=== PATIENT | male | born 1965 | race Caucasian/White ===

== ENCOUNTER 2021-01-02 10:09 | Emergency (ER) | payer MEDICAID, MEDICARE ==
[~2021-01-02] VITALS: Ht 180.3 cm; Wt 102.6 kg
[~2021-01-02 10:09] MED LIST: AUGM875T28 PO; BACT800T5 PO; CELE1CAP4 PO; DOCU10CA PO; MYLI40DR PO; NEUR600T PO; No Medications; ROXI1TAB2 PO; TYLE325T5 PO
[2021-01-02 11:51] LABS: BASO # 0.1 10^3/uL (0.0-0.2); BASO % 0.8 % (0.0-1.0); EOS # 0.2 10^3/uL (0.0-0.5); EOS % 1.4 % (0.0-3.0); HEMOGLOBIN 16.8 g/dl (13.5-17.5); LYMPH # 3.7 10^3/uL (1.5-5.0); LYMPH % 29.8 % (24.0-44.0); MEAN CORPUSCULAR HEMOGLOBIN 31.5 pg (27.0-33.0); MEAN CORPUSCULAR HGB CONC 33.6 g/dl (32.0-36.5); MEAN CORPUSCULAR VOLUME 93.8 fl (80.0-96.0); MONO # 0.9 10^3/uL (0.0-0.8); MONO % 7.2 % (2.0-8.0); NEUTROPHILS # 7.4 10^3/uL (1.5-8.5); NEUTROPHILS % 60.1 % (36.0-66.0); PLATELET COUNT, AUTOMATED 332 10^3/uL (150-450); RED BLOOD COUNT 5.33 10^6/uL (4.30-6.10); WHITE BLOOD COUNT 12.3 10^3/uL (4.0-10.0)
--- NOTE | 2021-01-02 12:06 | REP ---
INDICATION: large bulge Left abdomen, concern hernia. COMPARISON: None. TECHNIQUE: Real-time sonographic evaluation of anterior abdominal wall performed at the site of bulging on the left. FINDINGS: To the left of the umbilicus there is a hernia defect approximately 3 cm in diameter in the anterior abdominal wall. Peritoneal fat extends through the hernia defect into the anterior abdominal wall. The hernia sac measures approximately 10.5 x 3.9 x 9.3 cm. No bowel is seen in the hernia. The hernia is reducible with transducer pressure. No fluid collection is seen. IMPRESSION: Reducible left paraumbilical anterior abdominal wall hernia containing peritoneal fat but no bowel. <Electronically signed by Jamarcus De La Torre > 01/02/21 1201
[2021-01-02 12:18] LABS: ALBUMIN 4.1 GM/DL (3.2-5.2); ALT/SGPT 35 U/L (12-78); BILIRUBIN,DIRECT 0.2 MG/DL (0.0-0.2); BILIRUBIN,TOTAL 0.5 MG/DL (0.2-1.0); BLOOD UREA NITROGEN 12 MG/DL (7-18); CALCIUM LEVEL 9.1 MG/DL (8.5-10.1); CARBON DIOXIDE LEVEL 32 MEQ/L (21-32); CHLORIDE LEVEL 102 MEQ/L (98-107); CREATININE FOR GFR 0.89 MG/DL (0.70-1.30); GLOMERULAR FILTRATION RATE > 60.0 (>56); GLUCOSE, FASTING 95 MG/DL (70-100); LIPASE 141 U/L (73-393); POTASSIUM SERUM 3.7 MEQ/L (3.5-5.1); SODIUM LEVEL 137 MEQ/L (136-145); TOTAL PROTEIN 7.8 GM/DL (6.4-8.2)
[2021-01-02] MEDS ORDERED: ISOVUE-370 76% 100ML VIAL As Ordered ONE (12:20)
[2021-01-02 12:55] VITALS: BP 136/75
--- NOTE | 2021-01-02 13:00 | REP ---
INDICATION: large bulge left abd, ro incarceration hernia COMPARISON: 11/08/2014. TECHNIQUE: CT Scan of the abdomen and pelvis was performed with intravenous administration of 100 cc of Isovue 370, without oral contrast. Sagittal and coronal reconstruction images are performed. FINDINGS: Lung bases: Unremarkable. Liver: There is diffuse fatty infiltration of the liver Gallbladder: Unremarkable. Spleen: Normal. Adrenals: Normal. Pancreas: Normal. Kidneys: Normal. Small and large bowel: There is no bowel obstruction. There is no free air. There is a left paraumbilical hernia of the anterior bowel wall. The diameter of the defect in the abdominal wall is approximately 4.6 cm. The hernia sac contains noninflamed fat. No bowel protrudes into the hernia. Free fluid: None. Abdominal aorta: No aneurysm or dissection. Adenopathy: None. Appendix: Not inflamed. Osseous structures: There are degenerative changes of the spine without compression deformity. Pelvis: No mass. IMPRESSION: There is a left paraumbilical hernia it of the anterior bowel wall. The diameter of the defect in the abdominal wall is approximately 4.6 cm. The hernia sac contains noninflamed fat. No bowel protrudes into the hernia. No free air or obstruction. <Electronically signed by Jamarcus De La Torre > 01/02/21 [id number]
--- NOTE | 2021-01-05 11:29 | ED PDOC ---
Post-Departure Follow-Up ct abd/p faxed to dr madden for fu Rodríguez De Paz MD January 05, 2021 11:29
== END 2021-01-02 13:31 | disposition home or self-care (01) ==
LOC: M ED 10:09
DX: K46.9 Unspecified abdominal hernia without obstruction or gangrene (principal); F17.200 Nicotine dependence, unspecified, uncomplicated; Z88.1 Allergy status to other antibiotic agents; Z88.8 Allergy status to other drugs, medicaments and biological substances; Z90.49 Acquired absence of other specified parts of digestive tract
CPT/HCPCS: 36415; 74177; 76705; 80048; 80076; 83690; 85025; 99284; Q9967

== ENCOUNTER → 2021-04-30 | Outpatient (CLI) | payer MEDICARE ==
--- NOTE | 2021-04-30 13:28 | REP ---
INDICATION: UMBILICAL HERNIA WITHOUT OBSTRUCTION OR GANGRENE COMPARISON: 11/05/2015 TECHNIQUE: PA and lateral. FINDINGS: The mediastinum and cardiac silhouette are normal. The lung thompson demonstrate chronic interstitial changes suggesting emphysematous disease without acute consolidation, effusion, or pneumothorax. The skeletal structures are intact and normal. IMPRESSION: No acute cardiopulmonary process. <Electronically signed by Nitish Guillory > 04/30/21 [id number]
== END ==
LOC: M RAD 11:53
PROVIDERS: ATTEND Physician Assistant
DX: Z01.810 Encounter for preprocedural cardiovascular examination (principal); K42.9 Umbilical hernia without obstruction or gangrene

== ENCOUNTER → 2021-05-13 | Outpatient (CLI) | payer MEDICARE ==
[~2021-05-13] MED LIST changes: +ACET-907 PO
== END ==
LOC: M LABSMTC 10:01
PROVIDERS: ATTEND Anesthesiology
DX: Z01.812 Encounter for preprocedural laboratory examination (principal); Z20.822 Contact with and (suspected) exposure to COVID-19

== ENCOUNTER 2021-05-18 05:58 | Inpatient (IN) | payer MEDICARE ==
[2021-05-18] VITALS (7 sets, daily range): BP systolic 130–159; BP diastolic 88–98; O2SAT 65
[~2021-05-18] VITALS: Ht 180.3 cm; Wt 98.4 kg
[2021-05-18] MEDS ORDERED: HEPARIN SOD (PORCINE) 5000UNITS/ML 1ML VIAL/SYRINGE SQ ONE (06:00)
[2021-05-18] MEDS ORDERED: CelecoXIB 400 MG CAP PO ONE (06:00)
[2021-05-18] MEDS ORDERED: ceFAZolin SOD 2 GM in IV 1 EA IV ONE (06:00)
[2021-05-18] MEDS ORDERED: LR 1,000 ML IV ONE (06:00)
[2021-05-18] MEDS ORDERED: LIDOCAINE 1% SDV 30ML VIAL As Ordered ONE (07:08)
[2021-05-18] MEDS ORDERED: BUPIVACAINE HCL 0.25% 30ML VIAL As Ordered ONE (07:08)
[2021-05-18] MEDS ORDERED: BUPIVACAINE HCL 0.25% 10ML VIAL As Ordered ONE (07:09)
[2021-05-18] MEDS ORDERED: HYDROmorphone HCL 2 MG/ML 1ML VIAL As Ordered ONE (07:09)
[2021-05-18] MEDS ORDERED: fentaNYL 100 MCG/2 ML INJECTION (J3010) As Ordered ONE (07:09)
[2021-05-18] MEDS ORDERED: MIDAZOLAM INJ 2MG/2ML VIAL (J2250 PER 1MG) As Ordered ONE (07:09)
[2021-05-18] MEDS ORDERED: BUPIVACAINE LIPOSOME/PF 1.3% 20ML VIAL (13.3MG/ML)(EXPAREL)(C9290 PER1MG) As Ordered ONE (07:09)
[2021-05-18] MEDS ORDERED: ACETAMINOPHEN 1000MG 100ML IV BTL (OFIRMEV) (J0131 PER 10MG) As Ordered ONE (07:11)
[2021-05-18] MEDS ORDERED: LIDOCAINE 2% 100MG/5ML SDV (FOR ANES.) As Ordered ONE (07:11)
[2021-05-18] MEDS ORDERED: KETOROLAC 60MG 2ML VIAL As Ordered ONE (07:11)
[2021-05-18] MEDS ORDERED: ONDANSETRON 4MG/2ML VIAL As Ordered ONE (07:11)
[2021-05-18] MEDS ORDERED: propofoL 200 MG/20 ML VIAL As Ordered ONE (07:11)
[2021-05-18] MEDS ORDERED: ROCURONIUM BROMIDE 50 MG/5 ML VIAL As Ordered ONE ×3 (07:11→11:46)
[2021-05-18] MEDS ORDERED: dexameTHASONE 4 MG/ML 1ML VIAL (J1100 PER 1MG) As Ordered ONE (07:11)
[2021-05-18] MEDS ORDERED: PHENYLephrine 500MCG 5ML (100MCG/ML) SYRINGE As Ordered ONE (07:51)
[2021-05-18] MEDS ORDERED: ePHEDrine SULFATE 25 MG/5 ML(5MG/ML) SYRINGE As Ordered ONE (07:51)
[2021-05-18] MEDS ORDERED: SUGAMMADEX SODIUM 500 MG/5 ML VIAL (BRIDION) As Ordered ONE (08:13)
[2021-05-18] MEDS ORDERED: LABETALOL 100MG/20ML VIAL As Ordered ONE (08:48)
[2021-05-18] MEDS: SENOKOT S TAB PO SCH ×2 (09:00→21:08)
[2021-05-18] MEDS ORDERED: ceFAZolin 1GM VIAL (J0690 PER 500MG) As Ordered ONE (12:18)
[2021-05-18] MEDS ORDERED: MORPHINE 4 MG/ML 1ML VIAL/SYRINGE (J2270) IV PRN (13:05)
[2021-05-18] MEDS ORDERED: ONDANSETRON 4MG/2ML VIAL IV PRN ×2 (13:05→13:20)
[2021-05-18] MEDS ORDERED: NORCO, ANEXSIA 5/325MG TABLET (HYDROcodone/ACETAMINOPHEN) PO PRN (13:05)
[2021-05-18] MEDS ORDERED: ACETAMINOPHEN TAB 650MG DOSE (2X325MG) PO PRN (13:05)
[2021-05-18] MEDS ORDERED: ALBUTEROL SULFATE 2.5 MG/0.5 ML INH NEB SOLN INH ONE (13:15)
[2021-05-18] MEDS ORDERED: oxyCODONE 5MG TAB PO PRN (13:20)
[2021-05-18] MEDS ORDERED: fentaNYL 100 MCG/2 ML INJECTION (J3010) IV PRN (13:20)
[2021-05-18] MEDS ORDERED: LR 1,000 ML IV SCH (13:20)
[2021-05-18] MEDS ORDERED: HYDROMORPHONE HCL 0.5 MG/ 0.5 ML SYRINGE (J1170 PER 1) IV PRN (13:20)
--- NOTE | 2021-05-18 13:41 | ROOPDOC ---
[facility] Report Of Operation Report of Operation DATE OF PROCEDURE: 05/18/21 PREPROCEDURE DIAGNOSES: Large incisional hernia left lower abdomen. POSTPROCEDURE DIAGNOSES: [place] cheese multiple incisional hernia, wide diastatic healing at the level of the umbilicus. PROCEDURE PERFORMED: eTEP access robotic assisted laparoscopic Aliyah Stoppa repair of lower midline incisional hernia with bilateral transversus abdominis release. (30x 30 cm Bard Soft Mesh) SURGEON: Sharif Harmon MD VENDER: Giuliana Rivera NP placement of the ports, management of the robotic arms and adjustment of the robotic arms, instrument exchange while I was at the surgeon's console. She remained on the field. She helped me with the placement of the mesh, driving the laparoscope. And also with the closure of the ports. She was present throughout the case. Ms. Rivera assisted me with ANESTHESIA: General endotracheal anesthesia. ESTIMATED BLOOD LOSS: Approximately 50 mL. COMPLICATIONS: None. REMARKS: Patient is a 55-year-old male who several years ago had evisceration dehiscence of his midline incision few weeks after sigmoid colon resection and eventually ended up with a moderate-sized midline periumbilical hernia with deviation and weakness on the left side with a large bulge resulting from this.. FINDINGS: Multiple compartments of the hernia to the left of the umbilicus. Transversely does measure 7 cm, vertically this measures 9 cms. there is also diastatic healing of the linea alba which extends up to 12 cm. Most prominent below the umbilicus and surrounding fat of the hernia. PROCEDURE NOTE: A 30 x 30 cm mid weight bear polypropylene was placed and contoured on the upper end in the lower end to about 20 cm transversely on both ends. DESCRIPTION OF PROCEDURE: Patient was given a dose of Ancef 2 g IV preoperatively for wound prophylaxis. He was brought to the operating room, placed supine on the table. Compression boots placed on bilateral lower extremities for DVT prophylaxis. General endotracheal anesthesia then started. A Simmons catheter was placed for urine output monitoring. Anesthesia performed. Using the ultrasound I marked her semilunar line on both sides as well as the area of the hernia defect. He was placed so that the break on the table is at the level of his umbilicus. His abdomen was then widely prepped and draped in usual sterile fashion. The bed was flexed to increase the space in between her costal cartilage and anterior superior iliac spine. Both arms were tucked.We paused for a surgical timeout using both pre-incision safety checklist to verify correct patient, procedure site and additional clinical information prior to beginning the procedure Patient's hernia is located at the level of the umbilicus roughly about a 7x[address]. He had a prior midline incision extending above and below the umbilicus which was the extraction site of a sigmoid colectomy performed laparoscopically which eventually dehisced causing the hernia. I started with the left upper quadrant approach medial to the left semilunar line. After creating a small incision theSetJam 5 mm optical port was placed in through to the retro-muscular plane on the left upper quadrant under direct vision of a 5 mm laparoscope. Insufflation and started to a pressure of 15 mmHg to separate the rectus muscle from the posterior sheath. I continued with blunt dissection to create space inferior to our entry. Once an adequate space about 8-10 cm inferiorly was created an 8 mm robotic trocar was placed under direct vision of the laparoscope. Using this as my instrument port site used a laparoscopic scissors connected to a monopolar cautery to continue inferior dissection down to the level of the pubic tubercle. Another 8 mm robotic trocar was placed under direct vision about 8-10 cm below the second port. The original 5 mm port was exchanged for an 8 mm robotic trocar. I completed the dissection of the left retro-muscular plane by freeing up the area superior to our initial entry. The da Demetrius robot was then positioned in place and the trochars duct to the robot. I used a 8 mm camera pointed upwards, laparoscopic scissors as well as a forced bipolar instrument for the procedure. I then scrubbed in to control of the camera and instruments at the surgeon's console. I further develop the left retro-muscular plane to the level of the linea alba. Since the hernia was more towards the left side I did not have much base around where the hernia is located. Thus I decided to crossover early. I then crossed over just above the level of the falciform ligament. The posterior sheath was divided about 1-2 cm from the left linea alba margin to enter the preperitoneal plane above the falciform ligament. He continued developing this plane until we reached the right rectus muscle. The posterior sheath on the right side of the linea alba was then opened up revealing the rectus muscle and the retro-muscular plane and this side was further developed mostly bluntly. After connecting all this 3 spaces I proceeded going inferiorly to the level of the hernia defect. I further develop the margins of the left linea alba plain to the pubic tubercle. Again the space above the umbilical ligaments were opened up and developed to encircle our hernia defect. I tried to conserve some of the hernia sac for later closure of the posterior sheath. Once I entered the abdominal cavity , this is the usual appearance of [place] cheese defect with incarcerated omentum. I slowly took this apart. There is a loop of small bowel that is adhered to the left side of the hernia going into the hernia defect. To be able to see this better I had my content assistant placed a 5 mm port over the right side and I used the laparoscope to look at the configuration. I proceeded dissecting this of the abdominal wall. I examined this after taking this down. I did not think I had any significant serosal tear. At the scarred in portion I did reinforce this with 3 sutures of 3-0 Vicryl placed in a Lembert fashion. There was no gross leakage of contents. The left over omental adhesions to the hernia was then taken down. I then proceeded continuing the inferior dissection on the right side totally bringing down the posterior sheath to the level of the pubic tubercle. The dissection then proceeded towards the right side of the semilunar line. I then examined and measured the dimensions of the hernia was measured to be 7x9 cm. The cavity has some honeycombing effect and extends towards the left side. There seems to be a separate defect on the left edge of the rectus muscle ca using the left most hernia that was most prominent on the examination the patient lays down. The diastatic linea alba extends to 12 cm at the level of the hernia and tapers down to 5 6 cm infraumbilically. After releasing the posterior sheath and peritoneum I have a 12 cm defect on the posterior sheath which I do not think will come together without any tension. Does have made a decision to proceed with transversus abdominis release/posterior component separation. Initially started with a bottoms up TAR approach. I continued to define the lateral space of [place] the peritoneum from the lateral edge of the transversus abdominis fibrotic edge. A retroperitoneal tunnel was then created. [place] I switched to a top-down TAR approach. The posterior leaflet of the internal oblique was divided to expose the transversus abdominis muscle medial to the insertion of the neurovascular bundles. The transversus abdominis muscle was then divided and we entered the pretransversalis plane and continued lateral dissection/separation at the level of the pretransversalis plane to bring down the posterior sheath and eventually my bottom dissection and superior dissection met and the tar was completed. I continued to bring down the transversalis/peritoneum until the posterior sheath is freely draping on top of the bowels. Still with this I did not feel comfortable stretching the posterior sheath towards the other side as this will continue to give attention to the posterior sheath. Thus I decided they needed to do bilateral release of the transversus abdominis muscle. Under direct vision 3 robotic trochars were placed. I used a previous 5 mm port sites as one of my port locations. The ports were mirroring the other side. The robotic arms were undocked and the boom was swung 180 degrees and we redocked the robotic arms. Thus we are essentially facing the left side docked on the right side. I proceeded with doing the transversus abdominis release on the left side. Again I started with the bottoms up TAR approach developing the lateral space of [place] and creating a retroperitoneal tunnel inferiorly . The planes are easier to define on the left side and actually had continued the bottoms up approach up to the level of the subcostal area. Once this was completed the left-sided posterior sheath freely meets the other side without any tension. I examined both flaps for holes and this was repaired with 3-0 Vicryl. The total of about 4 small holes were detected. The posterior sheath/peritoneum was then closed with a running suture of 2 OV lock. I then closed my anterior sheath with a running suture of #1 strata fix. I upsized one of the ports to a 12 mm port to accommodate the size of the needle. A total of 3 18 inch strata fix sutures were used. Incorporated and plicated the diastasis of the linea alba to return the rectus muscles at the midline from the level of the xiphisternum down to the pubic tubercle. The thinned out left side of the hernia was likewise incorporated with the closure. The hernia sac was plicated and included with the recreation of the linea alba to remove the space and prevent seroma formation. Once this is done, the robot was undocked. I scrubbed back in the proceeded with the rest of the procedure laparoscopically. I measured my space internally as well as externally and got a 30 x 30 cm Bard soft mid weight bear polypropylene mesh. This was contoured in the way that the upper and lower ends tapered down to 20 cm on each and. This was placed into the abdomen and positioned flat on the posterior sheath. I used 2 Tisseel vials and a spray form to affix the mesh to the posterior sheath. I then left to 19 Nikita drains through the lowest most ports on top of the mesh at the retrorectus space to drain this later on. The retrorectus space was then deflated. All port incisions were closed with 4-0 Monocryl in subcuticular fashion. The drains were sutured to the skin with 2 oh silks. Patient tolerated the procedure well. She was promptly awakened, extubated and brought to the recovery room in stable condition SHARIF HARMON MD May 18, 2021 13:41
[2021-05-18] MEDS: LR 1,000 ML IV SCH (17:06)
[2021-05-18] MEDS: KETOROLAC 30 MG/ML 1ML VIAL IV SCH (18:17)
[2021-05-19] VITALS (8 sets, daily range): BP systolic 112–135; BP diastolic 70–78; O2SAT 90–95
[2021-05-19] MEDS: KETOROLAC 30 MG/ML 1ML VIAL IV SCH ×4 (00:25→18:51)
[2021-05-19] MEDS: LR 1,000 ML IV SCH ×2 (02:25→04:53)
[2021-05-19 06:56] LABS: BASO % 0.1 % (0.0-1.0); HEMOGLOBIN 13.9 g/dl (13.5-17.5); LYMPH % 9.8 % (24.0-44.0); MEAN CORPUSCULAR HEMOGLOBIN 31.3 pg (27.0-33.0); MEAN CORPUSCULAR HGB CONC 32.3 g/dl (32.0-36.5); MEAN CORPUSCULAR VOLUME 96.8 fl (80.0-96.0); MONO # 1.4 10^3/uL (0.0-0.8); MONO % 6.7 % (2.0-8.0); NEUTROPHILS # 17.2 10^3/uL (1.5-8.5); NEUTROPHILS % 82.6 % (36.0-66.0); PLATELET COUNT, AUTOMATED 310 10^3/uL (150-450); RED BLOOD COUNT 4.44 10^6/uL (4.30-6.10); WHITE BLOOD COUNT 20.8 10^3/uL (4.0-10.0)
[2021-05-19 07:18] LABS: BLOOD UREA NITROGEN 25 MG/DL (7-18); CALCIUM LEVEL 8.7 MG/DL (8.5-10.1); CARBON DIOXIDE LEVEL 31 MEQ/L (21-32); CHLORIDE LEVEL 105 MEQ/L (98-107); CREATININE FOR GFR 0.98 MG/DL (0.70-1.30); GLOMERULAR FILTRATION RATE > 60.0 (>56); GLUCOSE, FASTING 107 MG/DL (70-100); POTASSIUM SERUM 4.9 MEQ/L (3.5-5.1); SODIUM LEVEL 142 MEQ/L (136-145)
--- NOTE | 2021-05-19 08:33 | IPNPDOC ---
Text Note Date of Service The patient was seen on 05/19/21. NOTE General surgery. Dr. Schwartz The patient is a 55-year-old male status post robotic assisted laparoscopic incisional hernia repair with bilateral transversus abdominis release 05/18/[address] Schwartz. This morning, the patient is sitting up in bed. He states he has been out of bed to the chair. Reports pain is reasonably controlled. Has not used any morphine. Used to [place] last evening and IV Toradol this morning. Temperature 96.6, heart rate 75, respiratory rate 18, blood pressure 123/73, 95% 3 L nasal cannula. Sitting up in bed, appears in no acute distress. MMM Lungs are clear to auscultation S1-S2 regular rate rhythm Abdomen is protuberant but soft, some tenderness around surgical sites noted, MAIA drain x2 in place with bloody drainage. No edema MAIA drain left abdomen 70 mL yesterday, 40 mL so far today. MAIA drain right abdomen 55 mL yesterday, 30 mL so far today. Assessment/plan Status post robotic assisted laparoscopic incisional hernia repair with bilateral transversus abdominis release 05/18/[address] Schwartz. The patient is reviewed as per Dr. Schwartz. The patient is advanced to regular diet IV fluids are discontinued this morning. MAIA drain x2 in place. WBC noted to be 20.8 on labs this morning The patient is afebrile. Continue to encourage out of bed and incentive spirometry. BMI 30.3. Complicates care DVT prophylaxis. Lovenox VS,Fishbone, I+O VS, Fishbone, I+O Laboratory Tests 05/19/21 06:17 Vital Signs Date Time Temp Pulse Resp B/P (MAP) Pulse Ox O2 Delivery O2 Flow Rate FiO2 05/19/21 06:00 96.6 75 18 123/73 (90) 95 Nasal Cannula 3.0 I&O- Last 24 Hours up to 6 AM 05/19/21 06:00 Intake Total 2760 ml Output Total 1370 ml Balance 1390 ml Attending Note Attending Note Patient is postop day 1 following robotic assisted laparoscopic [place] Stoppa repair with bilateral transversus abdominis release and placement of 30 x 30 mid weight polypropylene mesh sublay, retrorectus. Recently doing well. Pain is controlled. He is reporting some increased heartburn symptoms, was nauseated last night, no longer this morning. He has been hemodynamically stable, afebrile postoperatively. He reports passing some flatus earlier this morning. His Simmons catheter has been removed and he has been able to void freely. Urine does not look concentrated. Taking small amount of food. Denies nausea. On examination. He looks comfortable. He is able to get out of the bed, stand up independently on his own. He has a very protuberant abdomen moderately distended most notable at the upper abdomen which is tympanic and hypoactive. Minimally tender around the hernia repair site. Bilateral retrorectus drains show serosanguineous fluid. No rebound or guarding. No significant extremity edema. Labs today shows WBC of 20.8 otherwise rest of the labs are stable. Impression and plan Postop day 1 robotic assisted laparoscopic Aliyah Stoppa repair with bilateral transversus abdominis release of prior midline and left lower quadrant incisional hernia. I think he has some element of postoperative ileus given the abdominal distention likewise reports increased heartburn symptoms. He is passing flatus. Encouraged him to ambulate the hallways today. He wishes to go home. I told h im we will keep him for another day, for monitoring and I would like to repeat the CBC tomorrow follow-up on the leukocytosis. He is not showing any signs of peritonitis. His postoperative vitals have been stable, he has been afebrile. Dori Tavera May 19, 2021 08:33 NAVA SCHWARTZ MD May 19, 2021 12:41
[2021-05-19] MEDS: SENOKOT S TAB PO SCH ×2 (09:25→20:32)
[2021-05-19] MEDS: ENOXAPARIN 40MG/0.4ML SYRINGE (J1650 PER 10MG) SC SCH (09:25)
[2021-05-19] MEDS ORDERED: PANTOPRAZOLE 40MG VIAL (C9113 PER 1) IV SCH (14:00)
[2021-05-20] MEDS: KETOROLAC 30 MG/ML 1ML VIAL IV SCH ×2 (01:00→05:48)
[2021-05-20] MEDS: PERCOCET 5MG/325MG TAB PO PRN ×2 (02:58→09:54)
[2021-05-20] MEDS ORDERED: MOM 30ML SUSPENSION UDC PO ONE (05:15)
[2021-05-20 06:00] VITALS: BP 137/61
[2021-05-20 07:10] LABS: BASO # 0.1 10^3/uL (0.0-0.2); BASO % 0.7 % (0.0-1.0); EOS # 0.2 10^3/uL (0.0-0.5); EOS % 1.4 % (0.0-3.0); HEMATOCRIT 39.5 % (42.0-52.0); HEMOGLOBIN 12.9 g/dl (13.5-17.5); LYMPH # 3.3 10^3/uL (1.5-5.0); LYMPH % 25.2 % (24.0-44.0); MEAN CORPUSCULAR HEMOGLOBIN 31.3 pg (27.0-33.0); MEAN CORPUSCULAR HGB CONC 32.7 g/dl (32.0-36.5); MEAN CORPUSCULAR VOLUME 95.9 fl (80.0-96.0); MONO # 0.8 10^3/uL (0.0-0.8); MONO % 6.1 % (2.0-8.0); NEUTROPHILS # 8.6 10^3/uL (1.5-8.5); NEUTROPHILS % 66.1 % (36.0-66.0); PLATELET COUNT, AUTOMATED 264 10^3/uL (150-450); RED BLOOD COUNT 4.12 10^6/uL (4.30-6.10)
[2021-05-20 07:40] LABS: BLOOD UREA NITROGEN 20 MG/DL (7-18); CALCIUM LEVEL 8.6 MG/DL (8.5-10.1); CARBON DIOXIDE LEVEL 31 MEQ/L (21-32); CHLORIDE LEVEL 106 MEQ/L (98-107); CREATININE FOR GFR 0.89 MG/DL (0.70-1.30); GLOMERULAR FILTRATION RATE > 60.0 (>56); GLUCOSE, FASTING 109 MG/DL (70-100); POTASSIUM SERUM 4.1 MEQ/L (3.5-5.1); SODIUM LEVEL 141 MEQ/L (136-145)
[2021-05-20] MEDS ORDERED: PERCOCET PO (09:14)
[2021-05-20] MEDS ORDERED: SENN-52 PO (09:14)
[2021-05-20] MEDS: ENOXAPARIN 40MG/0.4ML SYRINGE (J1650 PER 10MG) SC SCH (09:49)
[2021-05-20] MEDS: SENOKOT S TAB PO SCH (09:49)
[2021-05-20 10:00] VITALS: BP 147/91
--- NOTE | 2021-05-20 13:42 | DS.PDOC ---
Discharge Summary General Date of Admission May 18, 2021 at 05:58 Date of Discharge 05/20/2021 Discharge Summary General surgery. Dr. Harmon PROCEDURES PERFORMED DURING STAY: status post robotic assisted laparoscopic incisional hernia repair with bilateral transversus abdominis release 05/18/[address] Harmon. ADMITTING DIAGNOSES: Incisional hernia Obesity. BMI 30.3 Colectomy 2014, diverticulitis with stricture DISCHARGE DIAGNOSES: Incisional hernia status post robotic assisted laparoscopic incisional hernia repair with bilateral transversus abdominis release 05/18/[address] Darren horton Obesity. BMI 30.3 Colectomy 2014, diverticulitis with stricture HISTORY OF PRESENT ILLNESS: The patient is a 55-year-old male with history of midline ventral incisional hernia status post laparoscopic sigmoid colectomy performed for colon obstruction 2014. Postoperatively he had wound dehiscence with evisceration, closure of the abdominal wall fascia and skin after washout. He subsequently noticed fairly large bulging along the incision line which increased gradually in size, and had been causing him discomfort. HOSPITAL COURSE: The patient is status post robotic assisted laparoscopic incisional hernia repair with bilateral transversus abdominis release 05/18/[address] Harmon. The patient has recovered well postoperatively. Pain has been controlled. The patient has been up out of bed, ambulating in the room. Initially 05/18 the patient was started on clear liquids however this was advanced to regular diet later the same day. By 05/20/2021 the patient was anxious for discharge and he was felt stable for discharge. The patient had not had a bowel movement prior to discharge, however the patient was reporting a lot of flatus. The patient was given a dose of milk of magnesia prior to discharge today. DISCHARGE MEDICATIONS: Please see below. ALLERGIES: Please see below. PHYSICAL EXAMINATION ON DISCHARGE: VITAL SIGNS: The patient has been afebrile throughout his stay. GENERAL: Awake and alert, resting comfortably in bed HEENT: MMM CARDIOVASCULAR EXAMINATION: S1-S2 regular rate rhythm RESPIRATORY EXAMINATION: Clear to auscultation ABDOMINAL EXAMINATION: Soft, some mild tenderness around surgical sites. There is a small amount of drainage noted on the dressing of the left MAIA drain. Both MAIA drains are intact. No drainage from incisions otherwise. EXTREMITIES: No edema LABORATORY DATA: WBC 10/5 was noted to be 20.8, this has decreased to 13.0 on the day of discharge. Hemoglobin 12.9. DISCHARGE PLAN: Discharge home DISPOSITION: 01 Home, Self-Care. DISCHARGE INSTRUCTIONS: Regular diet The patient is advised to wear abdominal binder at all times when out of bed Light activity only, no heavy pushing, pulling, lifting. Continue to keep incisions clean and dry. Dry dressing daily. The patient is discharged home with MAIA drain left and right lower abdomen intact. The patient is advised to monitor drainage daily and keep a log. Continue to keep MAIA drain sites clean and dry, dry dressing. Okay to use Tylenol and ibuprofen as needed. Percocet 5/325 1 tablet p.o. every 6 hours as needed, #18, I stop reference #[id number]. Reinforced to avoid constipation. Senokot 1 tablet p.o. twice daily sent to pharmacy. ITEMS TO FOLLOWUP ON ON OUTPATIENT: The patient should return to Dr. Harmon's office next week for drain removal. DISCHARGE CONDITION: Stable. TIME SPENT ON DISCHARGE: Greater than 30 minutes. Vital Signs/I&Os Vital Signs Date Time Temp Pulse Resp B/P (MAP) Pulse Ox O2 Delivery O2 Flow Rate FiO2 05/20/21 10:24 18 05/20/21 10:00 98.8 74 147/91 (109) 96 Room Air 05/20/21 06:00 2.0 I&O- Last 24 Hours up to 6 AM 05/20/21 06:00 Intake Total 2050 ml Output Total 2740 ml Balance -690 ml Laboratory Data Labs 24H Laboratory Tests 2 05/20/21 06:25: Immature Granulocyte % (Auto) 0.5, Neutrophils (%) (Auto) 66.1H, Lymphocytes (%) (Auto) 25.2, Monocytes (%) (Auto) 6.1, Eosinophils (%) (Auto) 1.4, Basophils (%) (Auto) 0.7, Neutrophils # (Auto) 8.6H, Lymphocytes # (Auto) 3.3, Monocytes # (Auto) 0.8, Eosinophils # (Auto) 0.2, Basophils # (Auto) 0.1, Nucleated Red Bloo d Cells % (auto) 0.0, Anion Gap 4L, Glomerular Filtration Rate > 60.0, Calcium Level 8.6 CBC/BMP Laboratory Tests 05/20/21 06:25 Discharge Medications Scheduled Acetaminophen (Tylenol) 325 Mg Tablet, 650 MG PO PRN, (Reported) Sennosides/Docusate Sodium (Senna Plus Tablet) 1 Each Tablet, 1 TAB PO BID Scheduled PRN Oxycodone/Acetaminophen (Oxycodone-Acetaminophen 5-325) 1 Each Tablet, 1 TAB PO Q4HP PRN for MODERATE PAIN (PS 5-7) Allergies Coded Allergies: No Known Allergies (Unverified , 05/18/21) Dori Tavera May 20, 2021 13:42
== END 2021-05-20 11:55 | disposition home or self-care (01) | DRG 355 ==
LOC: M OR 05:58 → M MS5PR 14:25
PROVIDERS: ADMIT Surgery; ATTEND Surgery
PROC: 0KXL0Z6 Transfer Left Abdomen Muscle, Transverse Rectus Abdominis Myocutaneous Flap, Open Approach (ICD-10-PCS; 2021-05-18)
PROC: 8E0W4CZ Robotic Assisted Procedure of Trunk Region, Percutaneous Endoscopic Approach (ICD-10-PCS; 2021-05-18)
PROC: 0WUF4JZ Supplement Abdominal Wall with Synthetic Substitute, Percutaneous Endoscopic Approach (ICD-10-PCS; principal; 2021-05-18 07:30)
DX: K43.2 Incisional hernia without obstruction or gangrene (principal); E66.9 Obesity, unspecified; Z68.30 Body mass index [BMI] 30.0-30.9, adult

== ENCOUNTER → 2024-04-10 | Outpatient (REF) | payer MEDICARE ==
[~2024-04-10] MED LIST changes: +PERCOCET PO; +SENN-52 PO
[2024-04-10 18:17] LABS: GC DNA AMPLIFICATION NEGATIVE (NEGATIVE)
[2024-04-10 18:40] LABS: HIV 1&2 SCREEN NEGATIVE (NEGATIVE)
== END ==
LOC: M LAB REF 16:33
PROVIDERS: ATTEND Nurse Practitioner Family
DX: N48.9 Disorder of penis, unspecified (principal); Z72.89 Other problems related to lifestyle